=== PATIENT | female | born 1955 | race Caucasian/White ===

== ENCOUNTER 2018-12-26 14:19 | Emergency (ER) | payer OTHER ==
[2018-12-26] MEDS ORDERED: OXYMETAZOLINE HCL 0.05% NASAL SPRAY 15 ML BOTTLE NASL ONE (14:45)
--- NOTE | 2018-12-26 14:51 | ER Document Report ---
ED ENT - General Chief Complaint: Nose Bleed Stated Complaint: NOSE BLEED Time Seen by Provider: 12/26/18 14:32 Notes: Patient is a 63-year-old female presents to the emergency department for a left nares epistaxis. Patient states she has had "left nostril septal nose bleeds since I was 12 years old!" States she does have home nasal clamps and "bleed- EZ" which is an [id number] marketed product to stop bleeding. Stated she used both this afternoon when her nose started bleeding. Stated she could not get it to stop so 911 was called. Stated that once EMS arrived the bleeding stopped. Stated she was bleeding for apx 30 minutes. Stated she there were blood clots coming out of her mouth as well which is why she wanted to still be seen in the ED. Stated she has not seen an ENT in this area. Patient denies headache, lightheadedness, dizziness, weakness, chest pain, shortness of breath. PMH: CHF, DM, HTN, hyperlipidemia, anemia Medications: Metoprolol, metformin, Januvia, aspirin, "some sort of statin." Allergies: Sulfa - Related Data Allergies/Adverse Reactions: Sulfa (Sulfonamide Antibiotics) Allergy (Verified 12/26/18 14:32) Past Medical History - General Information source: Patient - Social History Smoking Status: Current Every Day Smoker Chew tobacco use (# tins/day): No Frequency of alcohol use: Occasional Drug Abuse: None Family History: Reviewed & Not Pertinent Patient has suicidal ideation: No Patient has homicidal ideation: No - Past Medical History Cardiac Medical History: Reports: Hx Congestive Heart Failure, Hx Hypertension Endocrine Medical History: Reports: Hx Diabetes Mellitus Type 2 Psychiatric Medical History: Reports: Hx Depression - and anxiety Review of Systems - Review of Systems Constitutional: denies: Fever EENT: See HPI Cardiovascular: No symptoms reported. denies: Syncope, Dizziness, Lightheaded Respiratory: denies: Short of breath, Wheezing Gastrointestinal: denies: Vomiting Genitourinary: No symptoms reported Female Genitourinary: No symptoms reported Musculoskeletal: No symptoms reported Skin: No symptoms reported Hematologic/Lymphatic: No symptoms reported Neurological/Psychological: No symptoms reported Physical Exam - Vital signs Vitals: Temp Pulse Resp BP Pulse Ox 97.9 F 85 20 168/90 H 100 12/26/18 14:31 12/26/18 14:31 12/26/18 14:31 12/26/18 14:31 12/26/18 14:31 - Notes Notes: GENERAL: Alert, interacts well. No acute distress. HEAD: Normocephalic, atraumatic. EYES: Pupils equal, round, and reactive to light. Extraocular movements intact. ENT: Oral mucosa moist, tongue midline. There does appear to be a clot noted on the left septum. No obvious bleeding at this time. Nares patent, patient's pharynx is within normal limits. NECK: Full range of motion. Supple. Trachea midline. LUNGS: Clear to auscultation bilaterally, no wheezes, rales, or rhonchi. No respiratory distress. HEART: Regular rate and rhythm. No murmur ABDOMEN: Soft, non-tender. Non-distended. Bowel sounds present in all 4 quadrants. EXTREMITIES: Moves all 4 extremities spontaneously. No edema, normal radial and dorsalis pedis pulses bilaterally. No cyanosis. BACK: no cervical, thoracic, lumbar midline tenderness. No saddle anesthesia, normal distal neurovascular exam. NEUROLOGICAL: Alert and oriented x3. Normal speech. cranial nerves II through XII grossly intact PSYCH: Normal affect, normal mood. SKIN: Warm, dry, normal turgor. No rashes or lesions noted. Course - Re-evaluation Re-evalutation: 12/26/18 15:38 Laboratory 12/26/18 12/26/18 14:53 14:53 WBC 8.1 RBC 4.33 Hgb 11.7 L Hct 35.5 L MCV 82 MCH 27.1 MCHC 33.0 RDW 13.5 Plt Count 296 Lymph % (Auto) 39.1 Barton % (Auto) 8.3 Eos % (Auto) 1.3 Baso % (Auto) 0.4 Absolute Neuts (auto) 4.1 Absolute Lymphs (auto) 3.2 Absolute Monos (auto) 0.7 Absolute Eos (auto) 0.1 Absolute Basos (auto) 0.0 Seg Neutrophils % 50.9 PT 12.5 INR 0.93 APTT 32.4 Patient's labs are not alarming. Her hemoglobin is noted to be 11.7 but patient voices she knows she has slight anemia. Afrin has not been given yet, Pt wished to go buy Afrin OTC. I have talked about risk vs benefits of Afrin use with patient at bedside. Discussed to not using it for prolonged period of time. Also discussed close follow-up with her ENT. Patient has continued without any epistaxis while in the emergency department. Her blood pressure has also come down. Patient stable for discharge. - Vital Signs Vital signs: Temp Pulse Resp BP Pulse Ox 97.9 F 85 20 168/90 H 100 12/26/18 14:31 12/26/18 14:31 12/26/18 14:31 12/26/18 14:31 12/26/18 14:31 - Laboratory Result Diagrams: 12/26/18 14:53 Laboratory results interpreted by me: 12/26/18 14:53 Hgb 11.7 L Hct 35.5 L Discharge - Discharge Clinical Impression: Epistaxis Condition: Stable Disposition: HOME, SELF-CARE Instructions: Nosebleed Instructions ([facility]) Additional Instructions: As we discussed you have been seen and treated in the emergency department for a nosebleed. Please attempt to not blow, pick your nose for the next 24 hours. This could dislodge any clot that is formed. You can also buy [id number] Afrin. Please use 1 spray in each nostril only when you are having a nosebleed. Please follow-up with your primary care provider, ENT provider which will be in this packet. Please return to the emergency department for any concerns. Forms: Return to Work Referrals: ARLENE LEE DO [ASSOCIATE] - Follow up as needed
[2018-12-26 15:11] LABS: ABSOLUTE EOSINOPHILS # (AUTO) 0.1 10^3/uL (0.0-0.6); ABSOLUTE LYMPHOCYTES (AUTO) 3.2 10^3/uL (0.5-4.7); ABSOLUTE MONOCYTES (AUTO) 0.7 10^3/uL (0.1-1.4); ABSOLUTE NEUT (AUTO) 4.1 10^3/uL (1.7-8.2); BASOPHILS % (AUTO) 0.4 % (0-2); EOSINOPHILS % (AUTO) 1.3 % (0-6); HEMATOCRIT 35.5 % (36.0-47.0); HEMOGLOBIN 11.7 g/dL (12.0-15.5); LYMPHOCYTES % (AUTO) 39.1 % (13-45); MEAN CORPUSCULAR HEMOGLOBIN 27.1 pg (27.0-33.4); MEAN CORPUSCULAR VOLUME 82 fl (80-97); MONOCYTES % (AUTO) 8.3 % (3-13); PLATELET COUNT 296 10^3/uL (150-450); RED BLOOD COUNT 4.33 10^6/uL (3.72-5.28); RED CELL DISTRIBUTION WIDTH 13.5 % (11.5-14.0); SEGMENTED NEUTROPHILS % (AUTO) 50.9 % (42-78); TOTAL CELLS COUNTED % (AUTO) 100 %; WHITE BLOOD COUNT 8.1 10^3/uL (4.0-10.5)
[2018-12-26 15:20] LABS: INTERNATIONAL RATION (INR) 0.93; PARTIAL THROMBOPLASTIN TIME 32.4 SEC (23.5-35.8); PROTHROMBIN TIME 12.5 SEC (11.4-15.4)
[2018-12-26 16:10] VITALS: BP 140/83
== END 2018-12-26 16:05 | disposition home or self-care (01) ==
LOC: ER 14:19
DX: R04.0 Epistaxis (principal); F17.200 Nicotine dependence, unspecified, uncomplicated; I50.9 Heart failure, unspecified; I11.0 Hypertensive heart disease with heart failure; E11.9 Type 2 diabetes mellitus without complications; Z88.2 Allergy status to sulfonamides; Z79.84 Long term (current) use of oral hypoglycemic drugs; Z79.82 Long term (current) use of aspirin
CPT/HCPCS: 36415; 85025; 85610; 85730; 99283